=== PATIENT | male | born 1985 | race African-American/Black ===

== ENCOUNTER 2019-03-19 02:51 | Emergency (ER) | payer SELFPAY ==
[~2019-03-19] VITALS: Ht 172.7 cm; Wt 67.0 kg
[2019-03-19] MEDS ORDERED: LORAZEPAM 2MG/ML CPJ IM ONE (03:30)
[2019-03-19] MEDS ORDERED: HALOPERIDOL LACTATE 5MG/ML VIAL IM ONE (03:30)
[2019-03-19 04:25] LABS: BASOPHILS % 0.9 % (0.0-2.0); EOSINOPHILS % 0.6 % (0.0-5.0); HEMATOCRIT. 46.5 % (42.0-52.0); HEMOGLOBIN. 15.8 g/dL (14.0-18.0); LYMPHOCYTES % 23.3 % (20.0-50.0); MEAN CORPUSCULAR VOLUME 91.1 fL (80.0-94.0); MEAN PLATELET VOLUME 10.9 fl (7.4-10.4); MONOCYTES % 10.3 % (2.0-8.0); NEUTROPHILS % 64.9 % (40.0-76.0); PLATELET 151 x1000/uL (130-400); RED CELL DISTRIBUTION WIDTH 14.5 % (11.6-14.6)
[2019-03-19 06:11] LABS: CHLORIDE 110 mEq/L (98-107)
[2019-03-19 06:15] LABS: ETHANOL BLOOD < 10 mg/dL
[2019-03-19 08:20] VITALS: BP 120/70
== END 2019-03-19 08:30 | disposition home or self-care (01) ==
LOC: ER 02:51 → EDBD 02:51 → ER 08:30
DX: F20.9 Schizophrenia, unspecified (principal); R41.82 Altered mental status, unspecified; Z91.14 Patient's other noncompliance with medication regimen; Z98.890 Other specified postprocedural states
CPT/HCPCS: 36415; 70450; 71045; 80053; 80307; 80320; 80329; 82140; 83605; 83690; 84443; 85025; 96372; 99284; J1630; J2060; G0480